=== PATIENT | male | born 1980 | race Caucasian/White ===

== ENCOUNTER 2021-01-20 09:59 | Emergency (ER) | payer OTHER | END 2021-01-20 13:30 | disposition home or self-care (01) | LOC: ER1 09:59 | DX: M25.521 Pain in right elbow (principal); M25.511 Pain in right shoulder; M25.531 Pain in right wrist; F17.200 Nicotine dependence, unspecified, uncomplicated | CPT/HCPCS: 73030; 73080; 73110; 73200; 99284 ==

== ENCOUNTER → 2021-04-24 | Outpatient (CLI) | payer OTHER | LOC: KOH-I 10:39 | DX: M25.521 Pain in right elbow (principal); M25.321 Other instability, right elbow; S52.121A Displaced fracture of head of right radius, initial encounter for closed fracture; S53.431A Radial collateral ligament sprain of right elbow, initial encounter | CPT/HCPCS: 73221 ==